=== PATIENT | female | born 1985 | race Caucasian/White ===

== ENCOUNTER 2023-09-24 20:54 | Emergency (ER) | payer MEDICAID, SELFPAY ==
[2023-09-24] MEDS ORDERED: Ondansetron PF 4 MG/2 ML Vial ONE (21:42)
[2023-09-24] MEDS ORDERED: Ipratropium/Albuterol 3 ML NEB ONE (21:44)
[2023-09-24 21:51] LABS: #Eosinphils 0.1 10x3/uL (0.0-0.5); #Monocytes 0.5 10x3/uL (0.0-1.1); #Neutrophils 3.9 10x3/uL (1.5-8.4); %Basophils 0.6 % (0.0-2.0); %Lymphocytes 35.2 % (18.0-47.0); %Monocytes 6.7 % (0.0-10.0); %Neutrophils 55.4 % (40.0-75.0); Hematocrit 34.3 % (34.9-44.5); Hemoglobin 12.1 g/dL (12.0-15.5); Mean Corpuscular HGB CONC 35.3 g/dL (32.0-36.0); Mean Corpuscular Hemoglobin 31.8 pg (27.0-33.0); Mean Platelet Volume 10.1 fl (7.4-10.4); Platelet Count 274 10x3/uL (150-450); RBC Distribution Width 12.5 % (11.5-14.5); Red Blood Cell (RBC) Count 3.81 10x6/uL (3.90-5.03)
[2023-09-24 22:07] LABS: ALT (SGPT) 34 U/L (8-55); AST (SGOT) 27 U/L (5-34); Albumin 4.4 g/dL (3.5-5.0); Alkaline Phosphatase 44 U/L (40-110); Anion Gap 15 mmol/L (10-20); BUN (Urea Nitrogen) 11 mg/dL (7.0-18.7); Bilirubin, Total 0.3 mg/dL (0.2-1.2); Calc. Creatinine Clearance 0 mL/min (70-130); Calcium 8.8 mg/dL (7.8-10.44); Carbon Dioxide 21 mmol/L (22-29); Chloride 105 mmol/L (98-107); Estimated GFR 117; Globulin 2.8 g/dL (2.4-3.5); Glucose 87 mg/dL (70-105); Lipase 29 U/L (8-78); Potassium 3.8 mmol/L (3.5-5.1); Protein, Total 7.2 g/dL (6.0-8.3); Sodium 137 mmol/L (136-145)
[2023-09-24 22:13] LABS: Troponin I Less than 0.010 ng/mL (< 0.028)
[2023-09-24 22:39] LABS: Bilirubin Neg (Negative); Blood, Urine Negative (Negative); Clarity Clear (Clear); Glucose, Urine (Dipstick) Normal (Negative); Ketone, Urine 5 mg/dL (Negative); Leukocyte Negative (Negative); Nitrite Negative (Negative); Protein, Urine (Dipstick) Negative (Neg-Trace); Specific Gravity, Urine 1.015 (1.005-1.030); Urobilinogen Normal mg/dL (Less than 2)
[2023-09-24 23:15] LABS: Bacteria/HPF None Seen HPF (None Seen); CAUTI Indications for Culture Pregnancy; RBC/HPF None Seen HPF (0-3); Squamous Epithelial 0-3 HPF (0-3); WBC/HPF 0-3 HPF (0-3)
[2023-09-24 23:17] LABS: Urine Culture Reflex Yes Yes
== END 2023-09-24 23:22 | disposition home or self-care (01) ==
LOC: CSHERS 20:54
DX: O99.511 Diseases of the respiratory system complicating pregnancy, first trimester (principal); J45.909 Unspecified asthma, uncomplicated; Z3A.10 10 weeks gestation of pregnancy
CPT/HCPCS: 71045; 76856; 80053; 81001; 83690; 84484; 85025; 85379; 86850; 86900; 86901; 87086; 93005; 96374; J2405; J7620

== ENCOUNTER 2023-10-02 15:14 | Emergency (ER) | payer MEDICAID, SELFPAY ==
[2023-10-02 16:18] LABS: ALT (SGPT) 28 U/L (8-55); AST (SGOT) 25 U/L (5-34); Albumin 4.4 g/dL (3.5-5.0); Alkaline Phosphatase 43 U/L (40-110); Anion Gap 14 mmol/L (10-20); BUN (Urea Nitrogen) 10 mg/dL (7.0-18.7); Bilirubin, Total 0.2 mg/dL (0.2-1.2); Calc. Creatinine Clearance 0 mL/min (70-130); Calcium 9.1 mg/dL (7.8-10.44); Carbon Dioxide 23 mmol/L (22-29); Chloride 106 mmol/L (98-107); Estimated GFR 120; Globulin 3.2 g/dL (2.4-3.5); Glucose 104 mg/dL (70-105); Potassium 3.7 mmol/L (3.5-5.1); Protein, Total 7.6 g/dL (6.0-8.3); Sodium 139 mmol/L (136-145)
[2023-10-02 16:26] LABS: #Eosinphils 0.2 10x3/uL (0.0-0.5); #Monocytes 0.4 10x3/uL (0.0-1.1); #Neutrophils 4.2 10x3/uL (1.5-8.4); %Basophils 0.6 % (0.0-2.0); %Eosinophils 2.5 % (0.0-6.0); %Lymphocytes 27.8 % (18.0-47.0); %Monocytes 5.8 % (0.0-10.0); Hemoglobin 12.8 g/dL (12.0-15.5); Mean Corpuscular HGB CONC 34.6 g/dL (32.0-36.0); Mean Corpuscular Hemoglobin 31.9 pg (27.0-33.0); Mean Corpuscular Volume 92.3 fl (81.6-98.3); Mean Platelet Volume 10.1 fl (7.4-10.4); Platelet Count 303 10x3/uL (150-450); RBC Distribution Width 12.8 % (11.5-14.5); Red Blood Cell (RBC) Count 4.01 10x6/uL (3.90-5.03); White Blood Cell (WBC) Count 6.7 10x3/uL (3.5-10.5)
[2023-10-02 16:42] LABS: Bilirubin Neg (Negative); Blood, Urine 250 (Negative); Clarity Clear (Clear); Glucose, Urine (Dipstick) Normal (Negative); Ketone, Urine Negative (Negative); Leukocyte Negative (Negative); Nitrite Negative (Negative); Protein, Urine (Dipstick) Negative (Neg-Trace); Urobilinogen Normal mg/dL (Less than 2); pH, Urine 6.5 (5.0-9.0)
[2023-10-02 17:31] LABS: Bacteria/HPF Rare-Few HPF (None Seen); CAUTI Indications for Culture Dysuria,urgency,freq; RBC/HPF 21-50 HPF (0-3); Squamous Epithelial 0-3 HPF (0-3); WBC/HPF None Seen HPF (0-3)
[2023-10-02 17:32] LABS: Urine Culture Reflex No No
== END 2023-10-02 17:16 | disposition home or self-care (01) ==
LOC: CSHERS 15:14
DX: O36.4XX1 Maternal care for intrauterine death, fetus 1 (principal); Z3A.10 10 weeks gestation of pregnancy
CPT/HCPCS: 76856; 80053; 81001; 84702; 85025; 86900; 86901

== ENCOUNTER 2024-08-26 07:42 | Outpatient (CLI) | payer MEDICAID, OTHER | END 2024-08-26 07:43 | disposition home or self-care (01) | LOC: CSHULT 07:42 | PROVIDERS: ATTEND Nurse Practitioner Family | DX: R10.11 Right upper quadrant pain (principal) | CPT/HCPCS: 76700 ==

== ENCOUNTER 2024-10-08 14:05 | Emergency (ER) | payer MEDICAID ==
[2024-10-08 15:32] LABS: #Basophils 0.04 10x3/uL (0.0-0.2); #Eosinophils 0.05 10x3/uL (0.0-0.5); #Monocytes 0.32 10x3/uL (0.0-1.1); #Neutrophils 3.66 10x3/uL (1.5-8.4); %Basophils 0.7 % (0.0-2.0); %Eosinophils 0.9 % (0.0-6.0); %Lymphocytes 26.4 % (18.0-47.0); %Monocytes 5.8 % (0.0-10.0); Hematocrit 35.6 % (34.9-44.5); Hemoglobin 12.2 g/dL (12.0-15.5); Mean Corpuscular HGB CONC 34.3 g/dL (32.0-36.0); Mean Corpuscular Hemoglobin 30.8 pg (27.0-33.0); Mean Corpuscular Volume 89.9 fL (81.6-98.3); Platelet Count 244 10x3/uL (150-450); RBC Distribution Width 11.7 % (11.5-14.5); Red Blood Cell (RBC) Count 3.96 10x6/uL (3.90-5.03); White Blood Cell (WBC) Count 5.5 10x3/uL (3.5-10.5)
[2024-10-08 15:40] LABS: BHCG - Serum Negative (NEGATIVE); Pregs Control Background? CLEAR/WHITE (CLR/WHITE); Pregs Control Bar Appear? YES (CONTROL BAR)
[2024-10-08 15:47] LABS: ALT (SGPT) 30 U/L (8-55); AST (SGOT) 23 U/L (5-34); Albumin 4.2 g/dL (3.5-5.0); Alkaline Phosphatase 43 U/L (40-110); Anion Gap 13 mmol/L (10-20); BUN (Urea Nitrogen) 9 mg/dL (7.0-18.7); Bilirubin, Total 0.4 mg/dL (0.2-1.2); Calc. Creatinine Clearance 0 mL/min (70-130); Carbon Dioxide 23 mmol/L (22-29); Chloride 107 mmol/L (98-107); Estimated GFR 116; Globulin 2.7 g/dL (2.4-3.5); Glucose 85 mg/dL (70-105); Potassium 4.5 mmol/L (3.5-5.1); Protein, Total 6.9 g/dL (6.0-8.3); Sodium 138 mmol/L (136-145)
[2024-10-08 15:52] LABS: Troponin I Less than 0.010 ng/mL (< 0.028)
== END 2024-10-08 18:17 | disposition home or self-care (01) ==
LOC: CSHERS 14:05
DX: K46.9 Unspecified abdominal hernia without obstruction or gangrene (principal); R07.89 Other chest pain
CPT/HCPCS: 36415; 74176; 76705; 80053; 84484; 84703; 85025